=== PATIENT | male | born 1955 | race Caucasian/White ===

== ENCOUNTER 2021-05-13 13:26 | Emergency (ER) | payer MEDICARE ==
[~2021-05-13] VITALS: Ht 182.9 cm; Wt 68.0 kg
[2021-05-13 15:51] VITALS: BP 174/65
--- NOTE | 2021-05-13 16:23 | RAD ---
EXAM: PELVIS 1 VIEW. HISTORY: Foreign body in penis. COMPARISON: None. FINDINGS: There is no radiopaque or clear radiolucent foreign body. A questionable linear lucency pro jecting over the base of the penis on the second image is likely superimposition with a skinfold. No fractures are identified. The joint spaces of both hips are maintained. There are mild degenerativ e changes of the lower lumbar spine. IMPRESSION: 1. No identifiable foreign body by radiographs. Electronically signed by: Damaris Lamas MD (05/13/2021 4:20 PM) [facility]
--- NOTE | 2021-05-13 17:04 | RAD ---
US PELVIS COMPLETE 05/13/2021 4:32 PM INDICATION: Penile foreign body COMPARISON: None available. TECHNIQUE: Sonographic evaluation of the penis is performed utilizing grayscale and color Doppler. FINDINGS/ IMPRESSION: No suspicious foreign body identified within the urethra. Two suspected foreign bodies identified wit hin the urinary bladder, limited in evaluation by ultrasound. Cystoscopy could be of benefit for furt her evaluation. Electronically signed by: Katie Holbrook MD (05/13/2021 5:02 PM) DEAN
--- NOTE | 2021-05-13 17:09 | PHYS DOC ---
Past History Past Surgical History: No Surgical History (SHARRI DEAN APRN) General Adult EDM: Chief Complaint: PAIN ON URINATION HPI: HPI: Patient is a 65-year-old male who presents to the emergency department for possible foreign body in his penis. Patient reports that a week ago he stuck a rubber tube in his penis and has had increased urinary frequency and starting to have some pain with urination since. He states that he thought the tube had come out but he does not believe that it has. Patient reports that he is still able to urinate. He denies any urethral discharge, penile pain, nausea, vomiting, fevers, hematuria. (SHARRI DEAN APRN) Review of Systems: Review of Systems: Constitutional: negative unless reported in HPI Eyes: negative unless reported in HPI HENT: negative unless reported in HPI Respiratory: negative unless reported in HPI Cardiovascular: negative unless reported in HPI GI: negative unless reported in HPI : negative unless reported in HPI Musculoskeletal: negative unless reported in HPI Integument: negative unless reported in HPI Neurologic: negative unless reported in HPI Endocrine: negative unless reported in HPI Lymphatic: negative unless reported in HPI Psychiatric: negative unless reported in HPI (SHARRI DEAN APRN) Physical Exam: PE: Constitutional: Well developed, well nourished, no acute distress, non-toxic appearance. [] HENT: Normocephalic, atraumatic, bilateral external ears normal, oropharynx moist, no oral exudates, nose normal. [] Eyes: PERRL EOMI, conjunctiva normal, no discharge. [] Neck: Normal range of motion, no stridor Cardiovascular:Heart rate regular rhythm, no murmur [] Lungs & Thorax: Bilateral breath sounds clear to auscultation [] Abdomen: Bowel sounds normal, soft, suprapubic tenderness with palpation, no masses, no pulsatile masses. [] Skin: Warm, dry, no erythema, no rash. [] Back: Normal range of motion Extremities: No tenderness, no cyanosis, no clubbing, ROM intact, no edema. [] Neurologic: Alert and oriented X 3, normal motor function, normal sensory function, no focal deficits noted. [] Psychologic: Affect normal, judgement normal, mood normal. [] (SHARRI DEAN APRN) Current Patient Data: Labs: Laboratory Tests Test 05/13/21 16:49 Urine Collection Type Clean catch Urine Color Yellow Urine Clarity Hazy Urine pH 5.0 Urine Specific [place] >=1.030 Urine Protein >100 mg/dl Urine Glucose (UA) Neg mg/dL Urine Ketones (Stick) 40 mg/dL Urine Blood Large Urine Nitrite Neg Urine Bilirubin Small Urine Urobilinogen Dipstick 0.2 mg/dL Urine Leukocyte Esterase Neg Urine RBC 11-20 /HPF Urine WBC 11-20 /HPF Urine Squamous Epithelial Cells Occ /LPF Urine Bacteria Mod /HPF Vital Signs: Vital Signs Date Time Temp Pulse Resp B/P (MAP) Pulse Ox O2 Delivery O2 Flow Rate FiO2 05/13/21 15:51 98.0 83 16 174/65 (101) 97 Room Air (SHARRI DEAN APRN) EKG: EKG: [] (SHARRI DEAN APRN) Radiology/Procedures: Radiology/Procedures: []PROCEDURE: PELVIS COMPLETE US PELVIS COMPLETE 05/13/2021 4:32 PM INDICATION: Penile foreign body COMPARISON: None available. TECHNIQUE: Sonographic evaluation of the penis is performed utilizing grayscale and color Doppler. FINDINGS/ IMPRESSION: No suspicious foreign body identified within the urethra. Two suspected foreign bodies identified within the urinary bladder, limited in evaluation by ulsatish ly. Cystoscopy could be of benefit for further evaluation. Electronically signed by: Bryn Adams MD (05/13/2021 5:02 PM) [facility] DICTATED AND SIGNED BY: BRYN ADAMS MD DATE: 05/13/21 1701 CC: SHARRI DEAN APRN; KIM VASQUEZ MD ~MTH0 0 PROCEDURE: PELVIS EXAM: PELVIS 1 VIEW. HISTORY: Foreign body in penis. COMPARISON: None. FINDINGS: There is no radiopaque or clear radiolucent foreign body. A questionable linear lucency projecting over the base of the penis on the second image is likely superimposition with a skinfold. No fractures are identified. The joint spaces of both hips are maintained. There are mild degenerative changes of the lower lumbar spine. IMPRESSION: 1. No identifiable foreign body by radiographs. Electronically signed by: Damaris Lamas MD (05/13/2021 4:20 PM) [facility] DICTATED AND SIGNED BY: NAKITA LAMAS MD DATE: 05/13/21 1618 CC: EMERGENCY,DEPARTMENT; SHARRI DEAN APRN; KIM VASQUEZ MD ~MTH0 0 (SHARRI DEAN APRN) Heart Score: C/O Chest Pain: N/A Risk Factors: Risk Factors: DM, Current or recent (<one month) smoker, HTN, HLP, family history of CAD, obesity. Risk Scores: Score 0 - 3: 2.5% MACE over next 6 weeks - Discharge Home Score 4 - 6: 20.3% MACE over next 6 weeks - Admit for Clinical Observation Score 7 - 10: 72.7% MACE over next 6 weeks - Early Invasive Strategies (SHARRI DEAN APRN) Course & Med Decision Making: Course & Med Decision Making Pertinent Labs and Imaging studies reviewed. (See chart for details) [] Patient presents to the emergency department for possible foreign body in his penis. Patient reports that a week ago he stuck a rubber tube in his penis does not believe that it came out. He is reporting urinary frequency starting to develop some pain with urination. Patient reports that he is still able to void. An x-ray was performed that did not show any foreign body. Ultrasound was performed showed to suspected foreign body in the urinary bladder. Urinalysis was performed and that showed infection patient will be treated with an antibiotic. Bladder scan ordered for patient. I discussed patient's findings with urologist on-call at [facility]. They advised that since patient can void they should see him in the office on an outpatient basis within the week. Patient given referral information and contact information. Patient's vital signs stable he is in no acute distress and he is reliable. I discussed with patient all findings and diagnostic testing as well as the need to follow-up with PCP for further evaluation and treatment or return to the ER if any new or worsening symptoms. Strict return precautions were also discussed at length. Patient voiced understanding and agreement with the plan. Patient is hemodynamically stable at the time of disposition. (SHARRI DEAN APRN) Dragon Disclaimer: Dragon Disclaimer: This electronic medical record was generated, in whole or in part, using a voice recognition dictation system. (SHARRI DEAN APRN) Attending Co-Sign The patient was seen and interviewed as well as examined at the bedside. The chart was reviewed. The case was discussed. Agree with the plan of care. (REID VILLARREAL DO) Departure Departure: Impression: Primary Impression: Urinary tract infection Qualified Codes: N30.01 - Acute cystitis with hematuria Additional Impression: Foreign body in penis Qualified Codes: T19.4XXA - Foreign body in penis, initial encounter Disposition: HOME / SELF CARE / HOMELESS Condition: GOOD Referrals: KIM VASQUEZ MD (PCP) Patient Instructions: Foreign Body, Urinary Tract Infection Additional Instructions: [facility] urology group [phone], please call this number tomorrow morning to set up an appointment You were seen in the emergency department for a foreign body to your penis. This foreign body appears to be in your bladder. You were also noted to have a urinary tract infection which may be contributing to your urinary frequency and pain with urination. This will be treated with an antibiotic, please start and finish the antibiotic completely. Increase your fluids and rest. Avoid any bladder irritants like caffeine, sugary beverages or alcohol. You will need to follow-up with urology on outpatient basis regarding the foreign body. I contacted the urology group at [facility] and they would like to see you in their office within this week. Please call them tomorrow to set up a follow-up appointment. Do not place any additional items in your penis. Return to the emergency department if you develop worsening of your pain, hematuria, abdominal pain, intractable nausea or vomiting, high fevers refractory to treatment, inability to void, severe back pain or any new or worsening concerns. Scripts Cephalexin (KEFLEX) 500 Mg Capsule 1 CAP PO QID for uti for 10 Days, #40 CAP 0 Refills Prov: SHARRI DEAN APRN 05/13/21 SHARRI DEAN APRN May 13, 2021 17:09 REID VILLARREAL DO May 14, 2021 06:47
[2021-05-13 17:49] LABS: BILIRUBIN,URINE SMALL (NEG); CLARITY,URINE HAZY; COLOR,URINE YELLOW; GLUCOSE,URINE NEG (NEG)
[2021-05-13 17:51] LABS: BACTERIA,URINE MOD /HPF (0-FEW); NITRITE,URINE NEG (NEG); SQUAMOUS EPITHELIAL CELL,UR OCC /LPF; UROBILINOGEN,URINE 0.2 mg/dL (0.2 mg/dL)
[2021-05-13] MEDS ORDERED: CEPH500C PO (18:03)
== END 2021-05-13 18:13 | disposition home or self-care (01) ==
LOC: ER 13:26
DX: T19.4XXA Foreign body in penis, initial encounter (principal); N30.01 Acute cystitis with hematuria; X58.XXXA Exposure to other specified factors, initial encounter; Y93.89 Activity, other specified; Y92.89 Other specified places as the place of occurrence of the external cause; Y99.8 Other external cause status
CPT/HCPCS: 72170; 76856; 81001; 87086; 99285

== ENCOUNTER → 2021-06-23 | Outpatient (CLI) | payer MEDICARE ==
[~2021-06-23] MED LIST: ASPI325T8 PO; CEPH500C PO
[2021-06-23 13:25] LABS: BASO # 0.1 x10^3/uL (0.0-0.2); BASO % 1 % (0-3); EOS # 0.2 x10^3/uL (0.0-0.7); EOS % 2 % (0-3); HEMATOCRIT 42.6 % (39.0-53.0); HEMOGLOBIN 14.2 g/dL (13.0-17.5); LYMPH # 2.2 x10^3/uL (1.0-4.8); LYMPH % 22 % (24-48); MEAN CORPUSCULAR HEMOGLOBIN 33 pg (25-35); MEAN CORPUSCULAR HGB CONC 33 g/dL (31-37); MEAN CORPUSCULAR VOLUME 98 fL (79-100); MONO # 0.8 x10^3/uL (0.0-1.1); MONO % 8 % (0-9); NEUT # 6.7 x10^3uL (1.8-7.7); NEUT % 68 % (31-73); PLATELET COUNT 226 x10^3/uL (140-400); RED BLOOD COUNT 4.34 x10^6/uL (4.30-5.70); RED CELL DISTRIBUTION WIDTH 14.3 % (11.5-14.5); WHITE BLOOD COUNT 9.8 x10^3/uL (4.0-11.0)
[2021-06-23 13:34] LABS: CALCIUM 8.8 mg/dL (8.5-10.1); CREATININE 0.9 mg/dL (0.7-1.3); GFR 84.4; POTASSIUM 4.4 mmol/L (3.5-5.1)
[2021-06-23 13:43] LABS: BACTERIA,URINE FEW /HPF (0-FEW); BILIRUBIN,URINE NEG (NEG); CLARITY,URINE HAZY; COLOR,URINE YELLOW; GLUCOSE,URINE NEG (NEG); NITRITE,URINE NEG (NEG); UROBILINOGEN,URINE 0.2 mg/dL (0.2 mg/dL); WBC,URINE >40 /HPF (0-4)
== END ==
LOC: LAB 12:18
PROVIDERS: ATTEND Urology
DX: T19.1XXA Foreign body in bladder, initial encounter (principal); U07.1 COVID-19; X58.XXXA Exposure to other specified factors, initial encounter; Y93.89 Activity, other specified; Y92.89 Other specified places as the place of occurrence of the external cause; Y99.8 Other external cause status
CPT/HCPCS: 36415; 80048; 81001; 85025; U0003; 87086

== ENCOUNTER → 2021-07-23 | Day surgery (SDC) | payer MEDICARE ==
[~2021-07-23] MED LIST changes: +ACETAMINOPHEN 325 MG TABLET PO PRN; +ALBUTEROL SULFATE 2.5 MG/3 ML NEBU. NEB PRN; +ATROPINE 0.5 MG/5 ML DISP.SYRIN. IV PRN; +DEXAMETHASONE SOD PHOS 4 MG/ML VIAL. ONE; +GLYCINE IRR ONE; +GLYCOPYRROLATE 1 MG/5 ML VIAL. ONE; +IV RINGERS SOLUTION,LACTATED 1,000 ML IV SCH; +LIDOCAINE 2% PF 5 ML VIAL. ONE; +MIDAZOLAM HCL PF 2 MG/2 ML VIAL. IV PRN; +ONDANSETRON PF 4 MG/2 ML VIAL. IV PRN; +ONDANSETRON PF 4 MG/2 ML VIAL. ONE; +PHENOL ORAL SPRAY 177ML BOTTLE. MM PRN; +PROPOFOL 10,000 MCG/ML (20ML) VIAL IV ONE; +SEVOFLURANE 31 TO 60 MINUTES. IH ONE; +diphenhydrAMINE 50 MG/ML VIAL IV PRN
[2021-07-23 16:05] VITALS: BP 115/84
--- NOTE | 2021-07-23 20:14 | OP ---
DATE OF SURGERY: 07/23/2021 PREOPERATIVE DIAGNOSIS: Foreign body in the bladder. POSTOPERATIVE DIAGNOSIS: Foreign body in the bladder. PROCEDURES PERFORMED: Cystoscopy and attempted removal of foreign body. SURGEON: Luis Figueroa MD ANESTHESIA: General endotracheal. INDICATIONS FOR PROCEDURE: This is a 65-year-old male who presented with a foreign body in his bladder. They placed a penis ring that was broken off down his urethra and it got stuck into the bladder. He presented today for us to do cystoscopy and potential removal of the tube. He understood that we may not be able to get it removed today by methods, but this was our first attempt. He understood the risks of procedure including bleeding, infection, possible injury to bladder and wished to proceed. DESCRIPTION OF PROCEDURE: The patient was consented, taken to the operating room, put under general endotracheal anesthetic, was placed in dorsal lithotomy position. Perineum was prepped with Betadine and draped in the usual sterile fashion. A 21-Tajik cystoscope sheath with 30-degree lens directly into the anterior, posterior urethra and the bladder. There were no penile or bulbar urethral stricture identified. He had moderate bilobar hyperplasia of the prostate. I was able to look in and see this ring. It was a circular and had 2 ends, but it was looped up towards the dome of the bladder. I was able to get in there with a regular stent grasper and tried to grab around the stent and I could not get that grasper to be strong enough to pull on it. There was not a hollow inside, it was a full on tube and then I got another grasper that had teeth on it and I was able to get a hold of it. A couple of times, I got it into the urethra, but the grasper would just pull off, it was not strong enough to pull it through. So, at this point, I tried and realized it was not going to come out easily, so we drained the bladder per our plan. I discussed options with him, we can take him, maybe do a robotic cystotomy and remove it that way or I could potentially try again with the cystoscope and maybe try a different grasper or wire basket to see, it may not fit out the urethra, but I will need to have a laser available in case we get a hung basket. JEFFERY/MEDARDO DR: Norberto TID: [id number] CC: CHRISTINA ALVAREZ
== END | disposition home or self-care (01) ==
LOC: SURG 12:55
PROVIDERS: ATTEND Urology
DX: T19.1XXA Foreign body in bladder, initial encounter (principal); N40.0 Benign prostatic hyperplasia without lower urinary tract symptoms; F17.210 Nicotine dependence, cigarettes, uncomplicated; X58.XXXA Exposure to other specified factors, initial encounter; Y93.89 Activity, other specified; Y92.89 Other specified places as the place of occurrence of the external cause; Y99.8 Other external cause status
CPT/HCPCS: 52310; J1100; J2001; J2405; J2704; J3490; J7120

== ENCOUNTER → 2021-07-23 | Outpatient (CLI) | payer MEDICARE ==
[~2021-07-23] MED LIST changes: -ACETAMINOPHEN 325 MG TABLET PO PRN; -ALBUTEROL SULFATE 2.5 MG/3 ML NEBU. NEB PRN; -ATROPINE 0.5 MG/5 ML DISP.SYRIN. IV PRN; -DEXAMETHASONE SOD PHOS 4 MG/ML VIAL. ONE; -GLYCINE IRR ONE; -GLYCOPYRROLATE 1 MG/5 ML VIAL. ONE; -IV RINGERS SOLUTION,LACTATED 1,000 ML IV SCH; -LIDOCAINE 2% PF 5 ML VIAL. ONE; -MIDAZOLAM HCL PF 2 MG/2 ML VIAL. IV PRN; -ONDANSETRON PF 4 MG/2 ML VIAL. IV PRN; -ONDANSETRON PF 4 MG/2 ML VIAL. ONE; -PHENOL ORAL SPRAY 177ML BOTTLE. MM PRN; -PROPOFOL 10,000 MCG/ML (20ML) VIAL IV ONE; -SEVOFLURANE 31 TO 60 MINUTES. IH ONE; -diphenhydrAMINE 50 MG/ML VIAL IV PRN
[2021-07-23 13:50] LABS: CALCIUM 8.9 mg/dL (8.5-10.1); CREATININE 0.9 mg/dL (0.7-1.3); GFR 84.4; POTASSIUM 4.2 mmol/L (3.5-5.1)
[2021-07-23 13:51] LABS: BASO % 0 % (0-3); EOS % 3 % (0-3); HEMATOCRIT 43.9 % (39.0-53.0); HEMOGLOBIN 14.8 g/dL (13.0-17.5); LYMPH % 26 % (24-48); MEAN CORPUSCULAR HEMOGLOBIN 32 pg (25-35); MEAN CORPUSCULAR HGB CONC 34 g/dL (31-37); MEAN CORPUSCULAR VOLUME 96 fL (79-100); MONO # 0.8 x10^3/uL (0.0-1.1); MONO % 10 % (0-9); NEUT # 4.8 x10^3uL (1.8-7.7); NEUT % 61 % (31-73); PLATELET COUNT 231 x10^3/uL (140-400); RED BLOOD COUNT 4.57 x10^6/uL (4.30-5.70); RED CELL DISTRIBUTION WIDTH 13.4 % (11.5-14.5); WHITE BLOOD COUNT 7.8 x10^3/uL (4.0-11.0)
[2021-07-23 13:52] LABS: EOS # 0.2 x10^3/uL (0.0-0.7)
[2021-07-23 14:08] LABS: BACTERIA,URINE 0 /HPF (0-FEW); CLARITY,URINE CLEAR; COLOR,URINE YELLOW; GLUCOSE,URINE NEG (NEG); NITRITE,URINE NEG (NEG); SQUAMOUS EPITHELIAL CELL,UR OCC /LPF; UROBILINOGEN,URINE 0.2 mg/dL (0.2 mg/dL); WBC,URINE >40 /HPF (0-4)
== END ==
LOC: LAB 12:49
PROVIDERS: ATTEND Urology
DX: T19.1XXA Foreign body in bladder, initial encounter (principal)
CPT/HCPCS: 36415; 80048; 81001; 85025; 87086